=== PATIENT | female | born 1995 | race Caucasian/White ===

== ENCOUNTER 2018-10-11 16:53 | Emergency (ER) | payer MEDICAID ==
[~2018-10-11] VITALS: Ht 172.7 cm; Wt 80.0 kg
[2018-10-11] MEDS ORDERED: SODIUM CHLORIDE 0.9% 1,000 ML IV ONE (17:17)
[2018-10-11] MEDS ORDERED: BACITRACIN ZINC OINT UDPKT TOP ONE (17:30)
[2018-10-11] MEDS ORDERED: ONDANSETRON HCL 4MG/2ML INJ IV ONE (17:30)
[2018-10-11] MEDS ORDERED: MORPHINE SULFATE 4 MG/ML CPJ (NOT FOR IM USE) IV ONE (17:30)
[2018-10-11] MEDS ORDERED: TETANUS, DIPHTHERIA, PERTUSSIS VAC/PF 0.5ML (>7YR OLD) IM ONE (17:30)
[2018-10-11] MEDS ORDERED: LIDOCAINE 1%/EPI 1:100,000 10 ML VIAL IJ ONE (17:30)
[2018-10-11 21:22] VITALS: BP 126/69
== END 2018-10-11 21:34 | disposition home or self-care (01) ==
LOC: ER 16:53
DX: S01.81XA Laceration without foreign body of other part of head, initial encounter (principal); S40.021A Contusion of right upper arm, initial encounter; Y08.89XA Assault by other specified means, initial encounter; Y93.89 Activity, other specified; Y92.89 Other specified places as the place of occurrence of the external cause; Y99.8 Other external cause status
CPT/HCPCS: 12013; 70450; 90471; 90715; 96374; 96375; 99284; J2270; J2405; J3490; J7030; Z7610; 12002; 99283